=== PATIENT | male | born 1945 | race Caucasian/White ===

== ENCOUNTER 2020-03-04 10:40 | Observation (INO) | payer OTHER, SELFPAY ==
[2020-03-04] VITALS (11 sets, daily range): BP systolic 117–144; BP diastolic 61–82; PULSE 59–86; RESP 15–18; TEMP 36.1–37; O2SAT 95–99; BMI 31.2; BMI 69.2; BMI 69.3
--- NOTE | 2020-03-04 10:56 | EKG12_ITS ---
Test Reason : CP Blood Pressure : / mmHG Vent. Rate : 060 BPM Atrial Rate : 060 BPM P-R Int : 272 ms QRS Dur : 098 ms QT Int : 368 ms P-R-T Axes : -19 -21 -47 degrees QTc Int : 368 ms Atrial-paced rhythm with prolonged AV conduction Low voltage QRS T wave abnormality, consider anterolateral ischemia Abnormal ECG Confirmed by BROOKLYN RAI, DAVID ([id number]), photograph editor CONSUELO NAIK ([id number]) on 03/07/2020 9:27:52 AM Referred By: MARVIN Confirmed By:DAVID BARAHONA MD
--- NOTE | 2020-03-04 10:56 | RAD_ITS ---
STUDY: X-RAY CHEST REASON FOR EXAM: Male, 75 years old. CHEST PAIN TECHNIQUE: Single AP portable view of the chest. COMPARISON: None. FINDINGS: Left a serum place with leads overlying the right ventricle and atrium. Lower lobe atelectatic changes are present. There is no demonstrated pleural abnormality. Normal size heart. Normal mediastinum and lachelle. Normal visualized pulmonary arteries. Normal visualized aortic arch and descending thoracic aorta. Normal visualized thoracic spine. Normal visualized ribs, clavicles, and shoulders. There is no demonstrated abnormality of the visualized soft tissue structures of the upper abdomen. RAD/Chest 1 View (Portable) IMPRESSION: Left lower lobe atelectatic changes with otherwise no evidence of acute process. Electronically Signed: Joshua Reardon DO at 11:19 EDT , Service support ,
[2020-03-04] MEDS: 0.9% Normal Saline 1,000 ML 150 ML IV (11:03)
[2020-03-04] MEDS: Aspirin 81 MG TAB.CHEW 324 MG PO (11:04)
[2020-03-04 11:15] LABS: Absolute Lymphocyte Count 6.74 X10^3/uL (0.83-4.51); Basophil# 0.03 X10^3/uL; Basophil% 0.3 % (0-1); Eosinophil# 0.15 X10^3/uL; Eosinophils% 1.4 % (0-5); Hematocrit 41.3 % (40-54); Hemoglobin 13.6 g/dL (13.0-16.5); Lymphocyte # 6.74 X10^3/ul (4.0); Lymphocyte % 61.2 % (19-41); Mean Corp Hgb Conc 32.9 g/dL (32-36); Mean Corpuscular Hgb 29.8 pg (27.0-32.0); Mean Corpuscular Volume 90.4 fL (80-94); Mean Platelet Vol. 10.7 fl (6.2-12.0); Monocyte# 1.13 X10^3/uL; Monocyte% 10.3 % (0-10); NRBC Flagged by Analyzer 0 % (0-5); Neutrophil # 2.95 X10^3/uL (2.7-7.7); Neutrophil % 26.7 % (47-70); POSITIVE DIFFERENTIAL YES; POSITIVE MORPHOLOGY YES; Platelet Count 201 K/mm3 (150-450); RBC Distribution Width SD 45.8 fl (35.1-43.9); Red Blood Count 4.57 M/mm3 (4.6-6.2)
[2020-03-04 11:16] LABS: Differential Indicated SCAN CRITERIA MET
[2020-03-04] MEDS: Nitroglycerin SL (ED/IMG/CATH) 0.4 MG TABLET SUBLINGUAL (11:17)
[2020-03-04 11:26] LABS: Anion Gap 6 (5-15); BUN 22 mg/dL (7-18); BUN/Creat Ratio 17.3 RATIO (10-20); Calcium,Total 9.2 mg/dL (8.5-10.1); Chloride 105 mmol/L (98-107); Creatinine, Serum 1.27 mg/dL (0.70-1.30); D-Dimer Quantitative (DVT/PE) <= 0.27 FEU/ug/m (0.27-0.49); EST Glomerular Filtration Rate 59 mL/min (>60); Est Glom Filt Rate - Afr Amer 72 mL/min (>60); Estimated Creatinine Clearance 45.06 ml/min; Glucose 189 mg/dL (74-106); Potassium 4.4 mmol/L (3.5-5.1); Sodium Level 137 mmol/L (136-145)
--- NOTE | 2020-03-04 11:43 | NURSING ---
PER BELKYS WITH [facility], WE CANNOT SAY TO ADMIT THE PT AT YOUR FACILITY YOU NEED TO DO WHAT YOU NEED TO DO FOR THE PT
[2020-03-04 11:56] LABS: Reactive Lymphocyte 1+
--- NOTE | 2020-03-04 11:56 | ED.VISSUMM ---
- ER Visit Summary Date of Service: 03/04/20 Chief Complaint: [Chest pain ] History of Present Illness: The patient is a 75 M [presents to the emergency department with complaint of chest discomfort that he said for about a week. He describes this dull discomfort in the center of his chest. It does not seem to be exertional necessarily. Patient has been feeling somewhat lightheaded and just has had no energy. He is not had discomfort like this before. He does have history of diabetes and hypertension. Patient has a pacemaker. Patient normally goes to the [place] [facility]. He does not smoke cigarettes.] Physical Examination: [HEENT-PERRLA, EOMI. Cranial nerves II through XII grossly intact. TMs clear. Mucous membranes moist. No adenopathy. Cardiovascular-regular rate and rhythm without murmur or ectopy Lungs-clear to auscultation, chest wall stable without crepitus or subcu emphysema Abdomen-normoactive bowel sounds, soft, nontender, no rebound or rigidity, no peritoneal signs. Extremities-intact ?4, normal range of motion, normal pulses, atraumatic] Test Results: [EKG obtained arrival showed a atrially paced rhythm with nonspecific flipped T waves anteriorly as well as inferiorly. No old EKGs available for comparison. CBC with differential was normal. Chemistries normal. Troponin less than 0.015. D-dimer was less than 0.27.] Emergency Department Course and Treatment: [Patient received aspirin on arrival to the emergency department. Patient placed on cardiac rehabilitation program director. Patient had an IV line established. Patient was given sublingual nitro which did mostly resolve his pain.] Treatment Plan: [Admit for further work-up and evaluation of chest pain] Disposition: Admit [] Impression: [Chest pain-etiology uncertain] This note was generated with [employer] dictation software. It may contain incorrect words, spelling, and punctuation that were not noted in review of the chart prior to signing ED Disposition - Plan for ED Patient: Referrals: [facility],[place] [Primary Care Provider] -
--- NOTE | 2020-03-04 12:10 | PCM.HP.STD ---
Problem List (1) Chest pain Status: Acute Qualifiers: Chest pain type: unspecified Qualified Code(s): R07.9 - Chest pain, unspecified (2) Hypertension Status: Chronic Qualifiers: Hypertension type: essential hypertension Qualified Code(s): I10 - Essential (primary) hypertension (3) Type 2 diabetes mellitus Status: Chronic Qualifiers: Diabetes mellitus detention insulin use: without detention use (4) CLL (chronic lymphocytic leukemia) Status: Chronic History of Present Illness Date of Admission: 03/04/20 Chief Complaint: Chest pain - 1 week The patient is a 75 year old M with PMHx of hypertension, Type 2 DM, h/o agent Dodge exposure, CLL, who comes in with chest pain, ongoing for 1 week. Patient has been having substernal chest discomfort that has been ongoing for more than 1 week. He has no relieving or aggravating factors. Is not associated with diaphoresis or palpitation. Today he has some lightheadedness with the persistence of the chest discomfort and he decided to come to the hospital. Denied any recent illness, no sick contact. He has a history of pacemaker after receiving medications for a nuclear stress test. Vitals in the ED showed temperature 97.4 F, heart rate is 59, blood pressure is 114/82, respiratory 18, SPO2 is 95% on room air. WBC 11.0, hemoglobin 13.6, platelet count 201, D-dimer less than 0.27, BMP was unremarkable, creatinine is 1.27. No previous creatinine to compare. Troponin is negative. Patient's admitting EKG showed T wave inversions in the inferolateral leads II, 3, aVF VF, V5, V6. Chest x-ray showed left lower lobe atelectasis. Past Medical History Past Medical History (Chronic Problems): Chronic Problems Hypertension (Chronic) Type 2 diabetes mellitus (Chronic) CLL (chronic lymphocytic leukemia) (Chronic) Allergies No Known Allergies Allergy (Verified 03/04/20 10:42) Home Medications: Ambulatory Orders Medication Instructions Recorded Acetaminophen/Diphenhydramine 1 ea PO QHS 03/04/20 [Acetaminophen Pm Caplet] Cholecalciferol (Vitamin D3) 2,000 unit PO DAILY 03/04/20 [Vitamin D3] Ibuprofen 800 mg PO PRN PRN 03/04/20 Lisinopril [Zestril] 10 mg PO DAILY 03/04/20 Pravastatin [Pravachol] 40 mg PO DAILY 03/04/20 metFORMIN (XR) [Glucophage Xr] 500 mg PO BID 03/04/20 Surgical History: herniorrhaphy, pacemaker implantation Psychiatric History: No pertinent psych hx Lives: Spouse/ Significant Other Smoking Status: Former smoker Tobacco Use: Non-smoker Alcohol: None Drugs: None - *Family History Maternal History Items: Unknown Paternal History Items: Heart Disease Review of Systems Constitutional: Denies: Anorexia, Chills, Fever, Malaise, Weakness, Weight Change Eyes: Denies: Blurred vision, Cataracts, Conjunctivae Inflammation, Pain, Redness, Vision Change HEENT: Denies: Difficulty Hearing, Difficulty Swallowing, Head Aches, Hearing Changes, Sinus Congestion, Sinus Drainage Cardiovascular: Reports: Chest Pain, Light Headedness. Denies: Claudication, Chest Pressure, Orthopnea, Palpitations Respiratory: Denies: Cough, Hemoptysis, Shortness of breath at rest, Shortness of breath upon exertion, Sputum production Gastrointestinal: Denies: Abdominal Pain, Constipation, Hematemesis, Hematochezia, Nausea, Vomiting Genitourinary: Denies: Dysuria, Frequency, Incontinence Musculoskeletal: Denies: Joint Pain, Joint stiffness, Joint swelling, Joint Tenderness Skin: Denies: Rash, Wounds Neurological: Denies: Numbness, Tingling, Focal weakness Psychiatric: Denies: Anxiety, Depression, Homicidal Ideations, Suicidal Ideations Endocrine: Denies: Change in Body Habitus, Heat/ Cold Intolerance Hematologic/ Lymphatic: Denies: Easy Bruising, Easy Bleeding VTE Information - Inpt Only VTE Present on Admission: No VTE Pharm Prophylaxis ordered?: Yes Patient Problems: Active and Suspected Problems Chest pain (Acute) - Physical Exam Vitals/I&O's: Vital Signs Temp Pulse Resp BP Pulse Ox 97.4 F L 86 15 119/68 95 03/04/20 10:42 03/04/20 12:03 03/04/20 12:03 03/04/20 12:03 03/04/20 12:03 Oxygen Delivery Method Room Air Weight: 85.275 kg Body Mass Index (BMI) 31.2 General: Alert, Oriented x3, Cooperative, No apparent distress, - - obese HEENT: Atraumatic, PERRLA, EOMI, Normocephalic Oral: Moist Mucosa Neck: Supple Lungs: Clear to auscultation, Normal air movement Cardiovascular: Regular rate, Regular Rhythm, Normal S1, Normal S2, No murmurs Abdomen: Bowel Sounds Present, Soft, Non Tender, Non-Distended, No Hepato-splenomegaly Extremities: No edema Skin: No rashes Musculoskeletal: No Tenderness to Palpation of Joints or Extremities Lymphatic: No Cervical, Supraclavicular, or Inguinal Adenopathy Neurological: Cranial nerves II-XII grossly intact, Neuro grossly intact Psych/Mental Status: Normal Affect, Appropriate Laboratory Results 03/04/20 11:00: WBC 11.0, RBC 4.57 L, Hgb 13.6, Hct 41.3, MCV 90.4, MCH 29.8, MCHC 32.9, RDW Std Deviation 45.8 H, RDW Coeff of Mathew 14.0, Plt Count 201, MPV 10.7, Immature Gran % (Auto) 0.100, Neut % (Auto) 26.7 L, Lymph % (Auto) 61.2 H, [place] % (Auto) 10.3 H, Eos % (Auto) 1.4, Baso % (Auto) 0.3, Absolute Neuts (auto) 3.0, Absolute Lymphs (auto) 6.74 H, Nucleated RBC % 0, Differential Comment COMMENT, Reactive Lymphocytes 1+ 03/04/20 11:00: D-Dimer Quant (PE/DVT) <= 0.27 03/04/20 11:00: Sodium 137, Potassium 4.4, Chloride 105, Carbon Dioxide 26.0, Anion Gap 6, BUN 22 H, Creatinine 1.27, Estim Creat Clear Calc 45.06, Est GFR (MDRD) Af Amer 72, Est GFR (MDRD) Non-Af 59 L, BUN/Creatinine Ratio 17.3, Glucose 189 H, Calcium 9.2, Troponin I < 0.015 Current Medications Sodium Chloride () 1,000 mls @ 150 mls/hr IV .Q6H40M [facility] Last Admin: 03/04/20 11:03 Dose: 150 mls/hr Documented by: Nitroglycerin (Nitrostat) 0.4 mg SUBLINGUAL Q5M PRN PRN Reason: Chest pain Last Admin: 03/04/20 11:17 Dose: 0.4 mg Documented by: Assessment/Plan All Active Problems Chest pain (Acute) 1. Chest pain, atypical, initial EKG showed some inferolateral T-wave inversions. Repeat EKG shows T waves have normalised. Initial troponin is negative. Patient reportedly has a reaction to some cardiovascular test agent and with pacemaker now Obtain records from [place] Will trend EKG, Exercise stress test in am Lipid profile in am 2. Hypertension, controlled, Continue on Lisinopril 3. Type 2 DM, on metformin, Will hold metformin, check HgbA1c Continue with blood glucose checks and ISS 4. CLL, h/o agent orange, [facility] 5. DVT PPx- Heparin SC OBSV E&M: 51102 Initial observation care L3
--- NOTE | 2020-03-04 12:47 | EKG12_ITS ---
Test Reason : CP ADMISSION Blood Pressure : / mmHG Vent. Rate : 060 BPM Atrial Rate : 060 BPM P-R Int : 184 ms QRS Dur : 154 ms QT Int : 434 ms P-R-T Axes : 000 -69 087 degrees QTc Int : 434 ms AV dual-paced rhythm Abnormal ECG Confirmed by BROOKLYN RAI, DAVID ([id number]), publication editor CONSUELO NAIK ([id number]) on 03/07/2020 9:54:55 AM Referred By: EUGENIA Confirmed By:DAVID BARAHONA MD
--- NOTE | 2020-03-04 13:04 | NURSING ---
In 1999 pt had atomic stress test which caused his heart to stop and that is why pacemaker was placed. OR visual manager with [facility]. Pt states it was replaced in 2011 there.
[2020-03-04] MEDS: 0.9% Normal Saline 1,000 ML 75 ML IV (13:38)
[2020-03-04] MEDS: Heparin Injection (Vial) 5,000 UNIT/ML VIAL 5000 UNIT SC ×2 (13:39→22:06)
[2020-03-04 13:51] LABS: Bedside Glucose 102 mg/dL (70-110)
[2020-03-04 16:46] LABS: Bedside Glucose 92 mg/dL (70-110)
[2020-03-04] MEDS: Pravastatin 40 MG Tablet PO (22:08)
[2020-03-04 22:26] LABS: Bedside Glucose 122 mg/dL (70-110)
[2020-03-05 00:05] VITALS: PULSE 60
[2020-03-05] MEDS: 0.9% Normal Saline 1,000 ML 75 ML IV (00:39)
[2020-03-05 04:10] VITALS: PULSE 68
[2020-03-05 05:00] VITALS: BP 134/79; PULSE 69; RESP 16; TEMP 36.6; O2SAT 95
[2020-03-05 05:49] LABS: Absolute Lymphocyte Count 9.93 X10^3/uL (0.83-4.51); Absolute Neutrophil Count 3.2 X10^3/uL (2.0-7.7); Basophil# 0.03 X10^3/uL; Basophil% 0.2 % (0-1); Eosinophil# 0.27 X10^3/uL; Eosinophils% 1.9 % (0-5); Hemoglobin 12.4 g/dL (13.0-16.5); Lymphocyte # 9.93 X10^3/ul (4.0); Lymphocyte % 69.9 % (19-41); Mean Corp Hgb Conc 31.8 g/dL (32-36); Mean Corpuscular Hgb 29.1 pg (27.0-32.0); Mean Corpuscular Volume 91.5 fL (80-94); Mean Platelet Vol. 10.9 fl (6.2-12.0); Monocyte# 0.77 X10^3/uL; Monocyte% 5.4 % (0-10); NRBC Flagged by Analyzer 0 % (0-5); Neutrophil # 3.19 X10^3/uL (2.7-7.7); Neutrophil % 22.5 % (47-70); POSITIVE DIFFERENTIAL YES; POSITIVE MORPHOLOGY YES; Platelet Count 182 K/mm3 (150-450); RBC Distribution Width CV 14.1 % (11.6-14.6); Red Blood Count 4.26 M/mm3 (4.6-6.2); White Blood Count 14.2 K/mm3 (4.4-11.0)
[2020-03-05 05:55] LABS: Differential Indicated SCAN CRITERIA MET
[2020-03-05 05:58] LABS: ALB/GLOB Ratio 1.2 RATIO (0.9-2.4); AST(SGOT) 15 U/L (15-37); Alanine Aminotransfer ALT/SGPT 21 U/L (16-61); Albumin, Serum 3.3 g/dL (3.2-5.0); Alkaline Phosphatase 54 U/L (45-117); Anion Gap 6 (5-15); BUN 22 mg/dL (7-18); BUN/Creat Ratio 18.5 RATIO (10-20); Calcium,Total 8.7 mg/dL (8.5-10.1); Chloride 109 mmol/L (98-107); Cholesterol 139 mg/dL (200); Creatinine, Serum 1.19 mg/dL (0.70-1.30); EST Glomerular Filtration Rate 64 mL/min (>60); Est Glom Filt Rate - Afr Amer 77 mL/min (>60); Estimated Creatinine Clearance 48.09 ml/min; Globulin 2.8 g/dL (2.2-4.2); Glucose 118 mg/dL (74-106); High Density Lipoprotein 29 mg/dL; Potassium 4.4 mmol/L (3.5-5.1); Protein, Total 6.1 g/dL (6.4-8.2); Sodium Level 141 mmol/L (136-145); Triglycerides 225 mg/dL; Very Low Density Lipoprotein 45 mg/dL (5-40)
[2020-03-05 06:35] LABS: Differential Comment SCANNED; Reactive Lymphocyte 1+
[2020-03-05] MEDS: Heparin Injection (Vial) 5,000 UNIT/ML VIAL 5000 UNIT SC (06:35)
[2020-03-05 06:50] LABS: Bedside Glucose 115 mg/dL (70-110)
--- NOTE | 2020-03-05 09:22 | CASEMGMT ---
Clinicals faxed to the [place] transfer center at this time. Call from Jonas THORPE at [facility] and he request to be notified when pt discharged. Call back number is [phone] ext [phone]. Nickolas THORPE CM
[2020-03-05 11:00] VITALS: BP 129/84; PULSE 69; RESP 16; TEMP 36.9; O2SAT 97
[2020-03-05 11:36] LABS: Bedside Glucose 130 mg/dL (70-110)
--- NOTE | 2020-03-05 11:37 | STRESSREP ---
Stress Test Report Exercise stress test. 75-year-old male with a history of chest pain. Stress protocol: Resting EKG demonstrates normal sinus rhythm with paced ventricular beats at 62 bpm occasional premature ventricular complexes noted. The patient exercised according to regular Osvaldo protocol for a total duration of 5 minutes the maximum heart rate attained was 136 bpm which was 92% of maximal predicted heart rate the maximum workload was 7 metabolic equivalents. At rest there were no ST or T wave changes noted to suggest ischemia. The paced rhythm was noted no EKG changes were noted at rest and with exercise. No chest pain was noted. The resting blood pressure was 132/78 with a peak blood pressure 154/82. Conclusion: Exercise stress test with no EKG criteria for ischemia at a moderate workload. No clinical angina noted. Paced rhythm noted.
[2020-03-05] MEDS: Lisinopril 10 MG Tablet PO (11:40)
--- NOTE | 2020-03-05 11:50 | PCM.DC ---
- Discharge Diagnoses Current Active Problems: Current Active and Chronic Problems Chest pain (Acute) Hypertension (Chronic) Type 2 diabetes mellitus (Chronic) CLL (chronic lymphocytic leukemia) (Chronic) You will use the following diet at home:: Calorie/Carbohydrate Controlled (specify 1200, 1400, etc) - 1800 Discharge Activity: Return to Normal Activity Instructions: ED Chest Pain NonCardiac Allergies/Adverse Reactions: Allergies No Known Allergies Allergy (Verified 03/04/20 10:42) Medications to take at Discharge Acetaminophen/Diphenhydramine [Acetaminophen Pm Caplet] 1 ea PO QHS 03/04/20 Cholecalciferol (Vitamin D3) [Vitamin D3] 2,000 unit PO DAILY 03/04/20 Ibuprofen 800 mg PO PRN PRN 03/04/20 Lisinopril [Zestril] 10 mg PO DAILY 03/04/20 Pravastatin [Pravachol] 40 mg PO DAILY 03/04/20 metFORMIN (XR) [Glucophage Xr] 500 mg PO BID 03/04/20 Primary Care Physician: [facility],[place] [Primary Care Provider] - Test Results: Test results from this visit will be discussed in further detail at your follow-up appointment, if applicable. Proposed Discharge Date: 03/05/20
--- NOTE | 2020-03-05 11:56 | DS.PCM_ITS ---
Discharge Date and Diagnosis - Problem List Patient Problems: Active and Suspected Problems Chest pain (Acute) Date of Admission: 03/04/20 Date of Discharge: 03/05/20 - Primary Discharge Diagnosis Active and Suspected Problems Chest pain (Acute) - Secondary Discharge Diagnosis Chronic Problems Hypertension (Chronic) Type 2 diabetes mellitus (Chronic) CLL (chronic lymphocytic leukemia) (Chronic) Hospital Course and Treatment Imaging Results: Clinical Impression(s) from Imaging Studies Chest X-Ray 03/04/20 10:56 IMPRESSION: Left lower lobe atelectatic changes with otherwise no evidence of acute process. Electronically Signed: Joshua DO Alexys at 11:19 EDT , Service support , Summary of Care Provided: The patient is a 75 year old M medical history significant for hypertension and diabetes mellitus type 2 who presented with chest pain. 1. Chest pain ?Patient was placed on a monitored bed did rule out [place] with serial cardiac enzymes subsequently underwent a nuclear stress test which was side stress test which was negative for stress-induced ischemia 2. Hypertension ?Blood pressure did remain stable continue with home meds 3. Diabetes mellitus type II ~Controlled, metformin held at admission resumed on discharge patient was also covered with Accu-Cheks before meals and at bedtime with sliding scale coverage Patient Problems: Active and Suspected Problems Chest pain (Acute) - Physical Exam Vitals/I&O's: Vital Signs Temp Pulse Resp BP Pulse Ox 98.4 F 69 16 129/84 H 97 03/05/20 11:00 03/05/20 11:00 03/05/20 11:00 03/05/20 11:00 03/05/20 11:00 Oxygen Delivery Method Room Air Weight: 85.2 kg Body Mass Index (BMI) 69.2 Intake and Output for Last 24 Hours 03/03/20 03/04/20 03/05/20 23:59 23:59 23:59 Intake Total 1500 / 1850 1833.75 / 1833.75 Balance 1500 / 1850 1833.75 / 1833.75 General: Alert HEENT: Atraumatic Neck: Supple Lungs: Clear to auscultation Laboratory Results 03/04/20 11:00: Differential Comment COMMENT, Reactive Lymphocytes 1+ 03/04/20 11:00: Hemoglobin A1c 7.0 H 03/04/20 13:34: POC Glucose 102 03/04/20 14:00: Troponin I < 0.015 03/04/20 16:27: POC Glucose 92 03/04/20 16:48: Troponin I < 0.015 03/04/20 22:11: POC Glucose 122 H 03/05/20 05:28: WBC 14.2 H, RBC 4.26 L, Hgb 12.4 L, Hct 39.0 L, MCV 91.5, MCH 29.1, MCHC 31.8 L, RDW Std Deviation 47.0 H, RDW Coeff of Mathew 14.1, Plt Count 182, MPV 10.9, Immature Gran % (Auto) 0.100, Neut % (Auto) 22.5 L, Lymph % (Auto) 69.9 H, [place] % (Auto) 5.4, Eos % (Auto) 1.9, Baso % (Auto) 0.2, Absolute Neuts (auto) 3.2, Absolute Lymphs (auto) 9.93 H, Nucleated RBC % 0, Differential Comment SCANNED, Reactive Lymphocytes 1+ 03/05/20 05:28: Sodium 141, Potassium 4.4, Chloride 109 H, Carbon Dioxide 26.0, Anion Gap 6, BUN 22 H, Creatinine 1.19, Estim Creat Clear Calc 48.09, Est GFR (MDRD) Af Amer 77, Est GFR (MDRD) Non-Af 64, BUN/Creatinine Ratio 18.5, Glucose 118 H, Calcium 8.7, Total Bilirubin 0.60, AST 15, ALT 21, Alkaline Phosphatase 54, Total Protein 6.1 L, Albumin 3.3, Globulin 2.8, Albumin/Globulin Ratio 1.2, Triglycerides 225 H, Cholesterol 139, LDL Cholesterol 65, VLDL Cholesterol 45 H, HDL Cholesterol 29 L 03/05/20 06:27: POC Glucose 115 H 03/05/20 11:24: POC Glucose 130 H Current Medications Cholecalciferol (Vitamin D (25mcg)) 2,000 unit PO DAILY [facility] Last Admin: 03/05/20 11:40 Dose: 2,000 unit Documented by: Dextrose (D50w Syringe) 0 gm IV X1 PRN; Protocol PRN Reason: Hypoglycemia Glucagon () 1 mg IM .X1 PRN PRN Reason: Hypoglycemia Heparin Sodium (Porcine) (Heparin Na) 5,000 unit SC Q8 [facility] Last Admin: 03/05/20 06:35 Dose: 5,000 unit Documented by: Sodium Chloride () 1,000 mls @ 75 mls/hr IV .[id number] [facility] Last Infusion: 03/05/20 07:49 Dose: 0 mls/hr Documented by: Sodium Chloride () 250 mls @ 15 mls/hr IV .[id number] PRN PRN Reason: Saline Flush Insulin Human Lispro (Humalog Kwikpen (Bkc)) 0 unit SC ACHS [facility]; Protocol Last Admin: 03/05/20 11:33 Dose: Not Given Documented by: Lisinopril (Zestril) 10 mg PO DAILY [facility] Last Admin: 03/05/20 11:40 Dose: 10 mg Documented by: Nitroglycerin (Nitrostat) 0.4 mg SUBLINGUAL Q5M PRN PRN Reason: CARDIAC/CHEST PAIN Ondansetron HCl (Zofran) 4 mg IV Q8H PRN PRN PRN Reason: NAUSEA/VOMITING Pravastatin Sodium (Pravachol) 40 mg PO QHS [facility] Last Admin: 03/04/20 22:08 Dose: 40 mg Documented by: Sodium Chloride () 10 - 40 ml IV UD PRN PRN Reason: SALINE FLUSH Discharge Diet: 1800 Calorie Control Diet Discharge Activity: Return to Normal Activity Home Medications: Medications to take at Discharge Acetaminophen/Diphenhydramine [Acetaminophen Pm Caplet] 1 ea PO QHS 03/04/20 Cholecalciferol (Vitamin D3) [Vitamin D3] 2,000 unit PO DAILY 03/04/20 Ibuprofen 800 mg PO PRN PRN 03/04/20 Lisinopril [Zestril] 10 mg PO DAILY 03/04/20 Pravastatin [Pravachol] 40 mg PO DAILY 03/04/20 metFORMIN (XR) [Glucophage Xr] 500 mg PO BID 03/04/20 Primary Care Physician: [facility],[place] [Primary Care Provider] - Patient Instructions: ED Chest Pain NonCardiac Medical Necessity - Tobacco Use Smoking Status: Never smoker Tobacco Use: Non-smoker Meaningful Use Info Meaningful Use Diagnoses (Choose all that apply): None applicable OBSV E&M: 03906 Observation care discharge
--- NOTE | 2020-03-06 09:16 | CASEMGMT ---
D/[facility] Call to Hom[facility] at [facility] to notify of discharge, voices understanding. Nickolas THORPE CM
== END 2020-03-05 11:52 | disposition home or self-care (01) ==
LOC: ED 11:50 → PCU 12:21
PROVIDERS: Admitting Provider Internal Medicine; Emergency Provider Emergency Medicine; Visit Provider Internal Medicine
DX: R07.89 Other chest pain (principal); I10 Essential (primary) hypertension; E11.9 Type 2 diabetes mellitus without complications; C91.10 Chronic lymphocytic leukemia of B-cell type not having achieved remission; Z79.899 Other long term (current) drug therapy; Z79.84 Long term (current) use of oral hypoglycemic drugs; Z95.0 Presence of cardiac pacemaker; Z57.4 Occupational exposure to toxic agents in agriculture; Z87.891 Personal history of nicotine dependence; R94.31 Abnormal electrocardiogram [ECG] [EKG]
CPT/HCPCS: 36415; 71045; 80048; 80053; 80061; 82962; 83036; 84484; 85025; 85379; 93005; 93017; 96360; 96361; 96372; 99218; 99251; 99285; J7030; A4216; G0378; G0463

== ENCOUNTER 2020-03-08 11:42 | Emergency (ER) | payer OTHER, SELFPAY ==
[2020-03-04 12:49] VITALS: BMI 69.2
[2020-03-08 11:43] VITALS: BP 162/85; PULSE 52; RESP 18; TEMP 36.6; O2SAT 98; BMI 30.4
--- NOTE | 2020-03-08 12:01 | CT_ITS ---
STUDY: CTA CHEST REASON FOR EXAM: Male, 75 years old. Chest pain x 2 weeks, dizzy. RADIATION DOSAGE (If Supplied By Facility): CTDIvol = ( 13.56 ) mGy, DLP = ( 547.73 ) mGycm TECHNIQUE: The examination was performed with the intravenous administration of 100mL Isovue 370. Post-processing of the angiographic images was performed, with multiplanar reformation and 3D reconstruction. Individualized dose optimization techniques were used for this CT. COMPARISON: Comparison is made with prior chest radiograph dated March 04, 2020. FINDINGS: A left-sided dual-chamber pacemaker is in situ. Normal enhancement of the main pulmonary artery and right and left pulmonary arteries. Normal enhancement of the bilateral peripheral pulmonary arteries. There is no demonstrated pulmonary embolism. Normal thoracic aorta and visualized great vessels. There is no demonstrated aortic dissection. There are calcifications of the coronary arteries. There are visualized mediastinal lymph nodes, which are within normal size limits, and with normal morphology. There are calcified left hilar lymph nodes. Normal visualized trachea and bronchi. The lungs are well expanded. Mild degree of the scarring in the upper lobes as well as in the lower lobes slightly more prominent on the left side. Normal pleura. Normal chest wall structures. There are degenerative changes of thoracic spine. Calcified splenic granulomas. CT/CTA Chest W/WO Contrast IMPRESSION: Mild scarring bilaterally. No acute abnormality is seen. Electronically Signed: Shaw Caro, at 13:38 EDT , Service support ,
--- NOTE | 2020-03-08 12:02 | EKG12_ITS ---
Test Reason : Blood Pressure : / mmHG Vent. Rate : 066 BPM Atrial Rate : 066 BPM P-R Int : 166 ms QRS Dur : 172 ms QT Int : 434 ms P-R-T Axes : 078 -64 072 degrees QTc Int : 454 ms Atrial-sensed ventricular-paced rhythm with occasional Premature ventricular complexes Abnormal ECG Confirmed by BROOKLYN RAI, DAVID ([id number]), staff editor CONSUELO NAIK ([id number]) on 03/12/2020 10:13:47 AM Referred By: CONNIE Confirmed By:DAVID BARAHONA MD
[2020-03-08 12:47] LABS: Absolute Lymphocyte Count 7.22 X10^3/uL (0.83-4.51); Absolute Neutrophil Count 4.9 X10^3/uL (2.0-7.7); Basophil# 0.04 X10^3/uL; Basophil% 0.3 % (0-1); Eosinophil# 0.11 X10^3/uL; Eosinophils% 0.8 % (0-5); Hemoglobin 13.4 g/dL (13.0-16.5); Lymphocyte # 7.22 X10^3/ul (4.0); Lymphocyte % 54.2 % (19-41); Mean Corp Hgb Conc 33.5 g/dL (32-36); Mean Corpuscular Hgb 29.5 pg (27.0-32.0); Mean Corpuscular Volume 88.1 fL (80-94); Mean Platelet Vol. 10.8 fl (6.2-12.0); Monocyte# 1.04 X10^3/uL; Monocyte% 7.8 % (0-10); NRBC Flagged by Analyzer 0 % (0-5); Neutrophil # 4.89 X10^3/uL (2.7-7.7); Neutrophil % 36.7 % (47-70); POSITIVE DIFFERENTIAL YES; POSITIVE MORPHOLOGY YES; Platelet Count 205 K/mm3 (150-450); RBC Distribution Width CV 13.7 % (11.6-14.6); RBC Distribution Width SD 43.9 fl (35.1-43.9); Red Blood Count 4.54 M/mm3 (4.6-6.2); White Blood Count 13.3 K/mm3 (4.4-11.0)
[2020-03-08 12:51] VITALS: BP 133/68; PULSE 64; RESP 20; O2SAT 96
[2020-03-08] MEDS: 0.9% Normal Saline 1,000 ML 1000 ML IV (12:51)
[2020-03-08 12:55] LABS: Differential Indicated SCAN CRITERIA MET
[2020-03-08 13:00] LABS: Anion Gap 8 (5-15); BUN 17 mg/dL (7-18); BUN/Creat Ratio 13.4 RATIO (10-20); Calcium,Total 9.8 mg/dL (8.5-10.1); Chloride 105 mmol/L (98-107); Creatinine, Serum 1.27 mg/dL (0.70-1.30); EST Glomerular Filtration Rate 59 mL/min (>60); Est Glom Filt Rate - Afr Amer 72 mL/min (>60); Estimated Creatinine Clearance 46.75 ml/min; Glucose 166 mg/dL (74-106); Sodium Level 140 mmol/L (136-145)
[2020-03-08 13:21] LABS: Platelet Estimate ADEQUATE (ADEQ); Reactive Lymphocyte 3+
[2020-03-08 13:22] LABS: Red Cell Morphology NORM C+C NORMAL (NORM C&C)
--- NOTE | 2020-03-08 13:31 | ED.VISSUMM ---
- ER Visit Summary Date of Service: 03/08/20 Chief Complaint: Chest pain History of Present Illness: The patient is a 75 M who goes to the [place]. He reports that he has substernal chest pain that began 2 weeks ago. Is a constant dull pain that is 5 out of 10 at worst and 3-10 currently. Is worsened by nothing including exertion, breathing, or movement. Is also relieved by nothing. He denies any associated nausea, vomiting, diaphoresis, or shortness of breath. Patient does report that he is lightheaded and it increases when he bends over. He has not passed out. He was admitted to the hospital had a stress test this week that was unremarkable. He talked with his doctor at the [facility] who said that he should have a CTA of his chest to rule out a PE or aneurysm. Physical Examination: Vitals: Stable. Afebrile. General: Well-nourished and well-developed. Head: Normocephalic atraumatic. Neck: Supple, no lymphadenopathy. No JVD. Nontender. Cardiovascular: Regular rate and rhythm. 2 out of 6 systolic murmur. Respiratory: No respiratory distress. Clear to auscultation bilaterally. Abdominal: Soft, nontender, nondistended, normal bowel sounds. No guarding, rebound, or peritoneal signs. Back: Nontender. Extremities: Nontender, no edema. Skin: Normal color, no rash. Neurologic: Alert and oriented ?3. Cranial nerves II through XII are intact. Normal strength and sensation. Psych: Normal affect. Test Results: EKG is atrial sensed and ventricular paced at 66 with good sense and capture. He does have PVCs. Troponin is negative despite 2 weeks of constant pain. Chem-7 shows a glucose of 166. CBC shows a white count of 13.3 with 37 segmented neutrophils of 54 lymphocytes. Clinical Impression(s) from Imaging Studies Chest CTA 03/08/20 12:01 IMPRESSION: Mild scarring bilaterally. No acute abnormality is seen. Electronically Signed: Shaw Caro, at 13:38 EDT , Service support , Emergency Department Course and Treatment: Patient refused pain medications. He is resting comfortably. Treatment Plan: Patient has had greater than 2 weeks of constant pain with negative enzymes. CTA of his chest was negative. I feel that he is a suitable candidate for further outpatient evaluation. He will be discharged with instructions to follow-up with his primary care physician in 3 to 5 days if not improving. Return to the emergency department for any worsening symptoms. Disposition: To home in improved and stable condition. Impression: 1. Atypical chest pain. 2. History of hypertension. 3. Type 2 diabetes mellitus. 4. Hypercholesterolemia. This note was generated with [employer] software. It may contain incorrect words, spelling, and punctuation that were not noted in review of the chart prior to signing ED Disposition - Plan for ED Patient: Instructions: ED Chest Pain Atypical Unkn Cause [facility] [[facility]] - 3-5 Days if not improving
[2020-03-08 13:56] VITALS: BP 124/73; PULSE 60; RESP 16; O2SAT 95
[2020-03-08 14:14] VITALS: BP 117/69; PULSE 69; RESP 15; O2SAT 98
[2020-03-09 10:55] LABS: Pathologist Review Reviewed
== END 2020-03-08 14:16 | disposition home or self-care (01) ==
LOC: ED 12:16
PROVIDERS: Emergency Provider Emergency Medicine
DX: R07.9 Chest pain, unspecified (principal); I10 Essential (primary) hypertension; E11.9 Type 2 diabetes mellitus without complications; E78.00 Pure hypercholesterolemia, unspecified; Z79.82 Long term (current) use of aspirin
CPT/HCPCS: 71275; 80048; 84484; 85025; 93005; 96360; 99284; J7030; Q9967; A4216